=== PATIENT | female | born 1975 | race Two or more races ===

== ENCOUNTER → 2020-01-19 07:25 | Outpatient (CLI) | payer OTHER ==
[~2020-01-19 07:25] MED LIST: BETASERON0.3 MG; COD LIVER OIL1 EACH PO; DIFLUCAN PO; FOLGARD TABLET1 EACH PO; INTEGRA CAPSUL1 EACH PO; INTERFERON BETA 1B; INTESTINEX PO; INTESTINEX680 M1; INTESTINEX680 M1 PO; LEVO-T50 MCG PO; NEURIN SL; PEPCID AC20 MG PO; PERCOCET 5-3251 EACH PO; TIROSINT50 MCG PO; TOPROL XL25 M1 PO; TOPROL XL50 M1
== END | disposition home or self-care (01) ==
LOC: LAB 07:25
PROVIDERS: ATTEND Internal Medicine
DX: C18.7 Malignant neoplasm of sigmoid colon (principal)

== ENCOUNTER 2020-02-15 07:24 | Day surgery (SDC) | payer OTHER ==
[2020-02-15] MEDS ORDERED: PERCOCET 5-3251 EACH PO (09:50)
== END 2020-02-15 13:05 | disposition home or self-care (01) ==
LOC: CIR.AMB 07:24
PROVIDERS: ATTEND Surgery
DX: C18.7 Malignant neoplasm of sigmoid colon (principal); C78.7 Secondary malignant neoplasm of liver and intrahepatic bile duct
CPT/HCPCS: 36561; C1751

== ENCOUNTER → 2020-03-01 07:32 | Outpatient (CLI) | payer OTHER | END | disposition home or self-care (01) | LOC: LAB 07:32 | PROVIDERS: ATTEND Internal Medicine | DX: C18.7 Malignant neoplasm of sigmoid colon (principal); C78.7 Secondary malignant neoplasm of liver and intrahepatic bile duct ==

== ENCOUNTER 2020-03-15 07:08 | Outpatient (CLI) | payer OTHER | END 2020-03-15 07:12 | disposition home or self-care (01) | LOC: LAB 07:08 | PROVIDERS: ATTEND Internal Medicine | DX: C18.7 Malignant neoplasm of sigmoid colon (principal); C78.7 Secondary malignant neoplasm of liver and intrahepatic bile duct ==

== ENCOUNTER → 2020-03-29 07:07 | Outpatient (CLI) | payer OTHER | END | disposition home or self-care (01) | LOC: LAB 07:07 | PROVIDERS: ATTEND Internal Medicine | DX: C18.7 Malignant neoplasm of sigmoid colon (principal); C78.7 Secondary malignant neoplasm of liver and intrahepatic bile duct ==

== ENCOUNTER 2020-05-02 07:47 | Outpatient (CLI) | payer OTHER | END 2020-05-02 07:54 | disposition home or self-care (01) | LOC: LAB 07:47 | PROVIDERS: ATTEND Internal Medicine Hematology & Oncology | DX: D50.8 Other iron deficiency anemias (principal); R74.0 Nonspecific elevation of levels of transaminase and lactic acid dehydrogenase [LDH]; C18.7 Malignant neoplasm of sigmoid colon; C78.7 Secondary malignant neoplasm of liver and intrahepatic bile duct; C78.02 Secondary malignant neoplasm of left lung; C78.01 Secondary malignant neoplasm of right lung; E03.8 Other specified hypothyroidism ==

== ENCOUNTER 2020-05-02 08:32 | Outpatient (CLI) | payer OTHER | END 2020-05-02 08:40 | disposition home or self-care (01) | LOC: TOM 08:32 | PROVIDERS: ATTEND Internal Medicine | DX: C18.7 Malignant neoplasm of sigmoid colon (principal); C78.7 Secondary malignant neoplasm of liver and intrahepatic bile duct | CPT/HCPCS: 71260; 74177; Q9965 ==

== ENCOUNTER 2020-06-01 13:08 | Inpatient (IN) | payer OTHER ==
[~2020-06-01] VITALS: Ht 160 cm; Wt 90.7 kg
[2020-06-01] MEDS ORDERED: SELENIUM SULFI120 ML (13:32)
[2020-06-01] MEDS ORDERED: ULTRAM50 MG (13:32)
[2020-06-18] MEDS ORDERED: TOPROL XL50 M1 PO (09:42)
[2020-06-18] MEDS ORDERED: SPIRONOLACTONE50 MG PO (09:43)
[2020-06-18] MEDS ORDERED: LEVOTHYROXINE75 MCG PO (09:43)
[2020-06-18] MEDS ORDERED: PROAIR HFA8.5 GM IH (09:44)
[2020-06-18] MEDS ORDERED: PULMICORT FLEX90 MCG IH (09:45)
[2020-06-18] MEDS ORDERED: ATROVENT HFA12.9 GM IH (09:46)
[2020-06-18] MEDS ORDERED: LIDODERM1 EACH TOP (09:48)
[2020-06-18] MEDS ORDERED: ULTRAM50 MG PO (09:50)
== END 2020-06-18 15:45 | disposition home or self-care (01) | DRG 74 ==
LOC: ER 13:08 → SURH 06-02 11:40
PROVIDERS: ADMIT Internal Medicine Hematology & Oncology; ATTEND Internal Medicine Hematology & Oncology
PROC: BW24YZZ Computerized Tomography (CT Scan) of Chest and Abdomen using Other Contrast (ICD-10-PCS; principal; 2020-06-02)
PROC: 4A033R1 Measurement of Arterial Saturation, Peripheral, Percutaneous Approach (ICD-10-PCS; 2020-06-02)
PROC: 02HV33Z Insertion of Infusion Device into Superior Vena Cava, Percutaneous Approach (ICD-10-PCS; 2020-06-03)
PROC: 3E0F7GC Introduction of Other Therapeutic Substance into Respiratory Tract, Via Natural or Artificial Opening (ICD-10-PCS; 2020-06-04)
PROC: 30233R1 Transfusion of Nonautologous Platelets into Peripheral Vein, Percutaneous Approach (ICD-10-PCS; 2020-06-09)
PROC: 0W9G3ZZ Drainage of Peritoneal Cavity, Percutaneous Approach (ICD-10-PCS; 2020-06-16)
DX: G90.519 Complex regional pain syndrome I of unspecified upper limb (principal); C18.7 Malignant neoplasm of sigmoid colon; C78.00 Secondary malignant neoplasm of unspecified lung; C78.7 Secondary malignant neoplasm of liver and intrahepatic bile duct; C78.89 Secondary malignant neoplasm of other digestive organs; K92.2 Gastrointestinal hemorrhage, unspecified; R18.8 Other ascites; J90 Pleural effusion, not elsewhere classified; J98.01 Acute bronchospasm; D63.0 Anemia in neoplastic disease; D69.6 Thrombocytopenia, unspecified; D50.0 Iron deficiency anemia secondary to blood loss (chronic); G89.3 Neoplasm related pain (acute) (chronic); G47.33 Obstructive sleep apnea (adult) (pediatric); G35 Multiple sclerosis; M62.838 Other muscle spasm; M75.21 Bicipital tendinitis, right shoulder; M94.0 Chondrocostal junction syndrome [Tietze]; E87.71 Transfusion associated circulatory overload; E03.8 Other specified hypothyroidism; E66.8 Other obesity; I11.9 Hypertensive heart disease without heart failure; R07.89 Other chest pain; F43.23 Adjustment disorder with mixed anxiety and depressed mood; F45.42 Pain disorder with related psychological factors

== ENCOUNTER 2020-06-20 13:15 | Inpatient (IN) | payer OTHER ==
[~2020-06-20] VITALS: Ht 160 cm; Wt 90.7 kg
[~2020-06-20 13:15] MED LIST changes: +ATROVENT HFA12.9 GM IH; +LEVOTHYROXINE75 MCG PO; +LIDODERM1 EACH TOP; +PROAIR HFA8.5 GM IH; +PULMICORT FLEX90 MCG IH; +SELENIUM SULFI120 ML; +SPIRONOLACTONE50 MG PO; +TOPROL XL50 M1 PO; +ULTRAM50 MG; +ULTRAM50 MG PO
--- NOTE | 2020-06-20 13:23 | NUR ---
SE RECIBE PACIENETE EN AMBULANCIA REFIERE SANGRADO POR NARIS SE COSME S/V YSE UBICA EN AREA DE OBSERVACION
--- NOTE | 2020-06-20 14:42 | NUR ---
PACIENTE FEMINA ALERTA ORIENTADA. SE RE ORIENTA SOBRE EL TRATAMIENTO ORDENADO POR EL MEDICO LA MISMA REFIERE ENTENDER. BAJO MEDIDAS ASEPTICAS SE CANALIZA SE COSME MUESTRAS DE LABORATORIO Y SE ADMINISTRAN MEDICAMENTOS. ORDENES TOMADAS Y EJECUTADAS POR RN: WALTER
--- NOTE | 2020-06-20 15:25 | NUR ---
PACIENTE ALERTA Y ORIENTADA EN [place] SHADI ESFERAS EN SAMANTHA CON BARANDAS ELEVADAS POR FLORES SEGURIDAD. SE OBSERVA IVF'S PATENTE ANDERSON DE EDEMA Y ENROJECIMIENTO EN MANO RT. PENDIENTE EKG Y COVID MOLECULAR. SE MANTIENE BAJO OBSERVACION POR CAMBIOS.
== END 2020-07-08 18:07 | disposition expired | DRG 435 ==
LOC: ER 13:15 → SURH 21:36
PROVIDERS: ADMIT Internal Medicine; ATTEND Internal Medicine
PROC: CB2YYZZ Tomographic (Tomo) Nuclear Medicine Imaging of Respiratory System using Other Radionuclide (ICD-10-PCS; 2020-06-22)
PROC: 0W9G3ZZ Drainage of Peritoneal Cavity, Percutaneous Approach (ICD-10-PCS; 2020-06-26)
PROC: 4A033R1 Measurement of Arterial Saturation, Peripheral, Percutaneous Approach (ICD-10-PCS; principal; 2020-06-29)
PROC: 5A09557 Assistance with Respiratory Ventilation, Greater than 96 Consecutive Hours, Continuous Positive Airway Pressure (ICD-10-PCS; 2020-06-29)
DX: C78.7 Secondary malignant neoplasm of liver and intrahepatic bile duct (principal); J96.90 Respiratory failure, unspecified, unspecified whether with hypoxia or hypercapnia; C79.51 Secondary malignant neoplasm of bone; C18.7 Malignant neoplasm of sigmoid colon; N39.0 Urinary tract infection, site not specified; J98.11 Atelectasis; D68.8 Other specified coagulation defects; E87.2 Acidosis; C78.02 Secondary malignant neoplasm of left lung; C78.01 Secondary malignant neoplasm of right lung; R18.0 Malignant ascites; J44.9 Chronic obstructive pulmonary disease, unspecified; I10 Essential (primary) hypertension; E66.8 Other obesity; E86.0 Dehydration; R04.0 Epistaxis; D69.59 Other secondary thrombocytopenia; D63.0 Anemia in neoplastic disease; Z20.828 Contact with and (suspected) exposure to other viral communicable diseases; E03.9 Hypothyroidism, unspecified; G35 Multiple sclerosis; F43.23 Adjustment disorder with mixed anxiety and depressed mood; B95.2 Enterococcus as the cause of diseases classified elsewhere; E87.5 Hyperkalemia; Z66 Do not resuscitate; Z53.09 Procedure and treatment not carried out because of other contraindication